=== PATIENT | male | born 1990 ===

== ENCOUNTER 2022-10-27 15:08 | Emergency (ER) | payer MEDICAID, SELFPAY ==
--- NOTE | ~2022-10-27 | CT_ITS ---
EXAMINATION: CT RIGHT KNEE WITHOUT CONTRAST CLINICAL INFORMATION: Tibial plateau fracture COMPARISON: None. TECHNIQUE: Multidetector CT examination of the right knee is performed without contrast. This CT examination was performed using dose optimization techniques as appropriate, variously including the following: *Automated exposure control *Adjustment of mA and/or kV according to patient size (this includes techniques or standardized protocols for targeted exams where dose is matched to indication/reason for exam; i.e. extremities or head) *Use of iterative reconstruction technique Reformatting in the coronal and parasagittal planes. DLP: 280 mGy-cm FINDINGS: There is an intra-articular mildly distracted minimally displaced posterior medial tibial plateau fracture extending to the medial tibial spine which measures approximately 3.2 x 1.3 x 3.0 cm. The tibial plateau fracture fragment measures 3.2 x 1.3 cm in the coronal plane and involves the posterior half of the medial tibial plateau and measures 3.0 cm from anterior to posterior. The articular surface is relatively smooth. There is approximately 3 mm of distraction. There may be minimal cortical disruptions of the lateral tibial plateau and the anterior aspect of the medial tibial plateau with some impaction/sclerosis. Difficult to assess the integrity of the cruciates. There is soft tissue stranding and there is a lipohemarthrosis. The fibula, patella and visualized femur appear intact CT/CT lower leg RT wo IV con IMPRESSION: 1. There is a somewhat displaced medial tibial plateau fracture extending to the medial tibial spine 2. The tibial plateau fracture fragment measures 3.2 x 1.3 cm in the coronal plane and involves the posterior half of the medial tibial plateau and measures 3.0 cm from anterior to posterior. The articular surface is relatively smooth. There is approximately 3 mm of distraction. Difficult to assess the integrity of the cruciates. There is soft tissue stranding and there is a lipohemarthrosis. The fibula, patella and visualized femur appear intact 3. Soft tissue injury suspected
--- NOTE | ~2022-10-27 | XR_ITS ---
EXAMINATION: XR KNEE, RIGHT CLINICAL INFORMATION: Fall COMPARISON: None available. TECHNIQUE: Four views of the right knee. FINDINGS: There is a minimally displaced medial tibial plateau fracture. No other fracture is seen. Joint spaces are normal. There is a small joint effusion with fat fluid level. XR/XR knee RT 3V IMPRESSION: Minimally displaced medial tibial plateau fracture.
--- NOTE | 2022-10-27 15:12 | ED.FALL ---
HPI - Fall General Chief Complaint: Extremity Problem Stated Complaint: fall Time Seen by Provider: 10/27/22 15:26 Source: patient Mode of arrival: ambulatory Limitations: no limitations History of Present Illness HPI Narrative: Patient is a 32-year-old male with history of recent meniscus injury found on MRI last week presenting to the emergency department with complaint of right knee pain after falling down concrete stairs last night. Patient reports that when he put weight on his right leg his knee gave out and he fell forward on to outstretched arms. He denies hitting his head. Denies any loss of consciousness. Denies any neck or back pain. He reports abrasions to bilateral palms as well as right anterior knee. He states that he fell directly onto his knee. Denies any numbness or tingling to his lower leg. Reports pain with any movement of right knee. complaint: fall Onset (ago): hour(s) Fall from: standing and down stairs (#) (1-2) Fall witnessed: yes, by family Place fall occurred: home Loss of consciousness: none Prolonged down time: no Symptoms prior to fall: other (knee instability) Location of injury - extremities: right: knee Severity: severe Quality: sharp Associated symptoms (after fall): denies Related Data Previous Rx's Medication Instructions Recorded oxycodone 5 mg tablet 5 mg PO Q8H PRN pain #8 tabs 10/27/22 Allergies Allergy/AdvReac Type Severity Reaction Status Date / Time No Known Allergies Allergy Verified 10/27/22 15:15 Review of Systems Review of Systems: As per HPI. Yes all other systems are reviewed and are negative Constitutional: Constitutional: Reports as per HPI [facility] Social History Social History Advance Directives: No Advance Directives Information Provided: No Physical Exam Vital Signs: Vital Signs: Last Vital Signs Temp 98.2 F 10/27/22 15:13 Pulse 108 H 10/27/22 15:13 Resp 18 10/27/22 15:13 BP 165/95 H 10/27/22 15:13 Pulse Ox 97 10/27/22 15:13 O2 Del Method Room Air 10/27/22 15:13 BMI result Body Mass Index 28.3 Vital signs have been reviewed and appear to be correct. Blood pressure elevated. Heart rate slightly tachycardic. Respiratory rate normal. Temperature normal. Oxygen saturation normal. Const: General: cooperative, healthy appearing and no acute distress Orientation/consciousness: oriented to person, oriented to place, oriented to time and patient oriented x3 Limitations: no limitations HEENT: Head: Yes normocephalic and Yes atraumatic Ears: external ears normal General nose exam: Normal external nose present Face and sinus: Yes face symmetric Mouth: oropharynx normal and moist mucous membranes Throat: Yes uvula midline Eyes: Pupils: Equal, round and reactive pupils present Neck: Neck: Yes normal visual inspection and Yes supple Resp: Effort & Inspection: normal respiratory effort and able to speak in complete sentences Auscultation: clear to auscultation bilaterally Cardio: Rate: regular rate Rhythm: regular rhythm Heart sounds: S1 normal heart sound present and S2 normal heart sound present GI: Palpation (GI): Soft to palpation and nontender Auscultation: normoactive bowel sounds : General: Yes no CVA tenderness Back/Spine/Pelvis: Back: no CVA tenderness Skin: General skin exam: elasticity normal and turgor normal Trauma: abrasion (bilateral palms of hands, right anterior knee) Neuro: General: oriented to person, oriented to place, oriented to time, patient oriented x3, moves all extremities, no focal motor deficits and CN's II-XI intact bilaterally Cranial nerves: Yes Equal, round and reactive pupils present Cognition (Neuro): normal cognition Extrem: General: Yes full ROM, Yes no pedal edema and Yes no calf tenderness Right upper extremity: Extremity exam: right hand Details: normal capillary refill, neuromotor exam normal, neurosensory exam normal and abrasion Location: of the palm Location: at the thenar eminence and at the hypothenar eminence Left upper extremity: hand Details: normal capillary refill, neuromotor exam normal, neurosensory exam normal and abrasion Location: of the palm Location: at the thenar eminence and at the hypothenar eminence Right lower extremity: knee Details: tenderness Location: of the tibial tuberosity, of the infrapatellar area and of the proximal tibia, abnormal ROM Details: held in an abnormal fashion Details: in flexion and pain with active ROM during Details: in extension and in flexion and abrasion knee anterior Details: multiple and foot Details: vascular exam Details: dorsalis pedis pulse present and posterior tibial pulse present Psych: Mental Status: mental status grossly normal Affect: normal affect Thought process: Normal thought process present Course Course Course Narrative: This is a rapid medical exam. Deferred additional HPI, ROS, PE to primary provider. 32 yo male here with complaints of right knee pain/fall early this morning. Went to put weight on right knee but knee gave out on him causing him to fall down four stairs. Denies hitting head or LOC. Had MRI of the right knee one week ago which shows meniscus injury, instability of knee is not a new thing. Has multiple abrasions. Tetanus status unknown. VSS Will check x-rays. Medications Administered Discontinued Medications Generic Name Dose Route Start Last Admin Trade Name Freq PRN Reason Stop Dose Admin Diphtheria/Tetanus/Acell Pertussis 0.5 ml 10/27/22 15:15 10/27/22 15:40 Diphth,Pertus(Acell),Tet Adult 0.5 Ml Syringe IM 10/27/22 15:16 0.5 ml .ONCE ONE Administration Oxycodone HCl 5 mg 10/27/22 16:29 10/27/22 16:36 Oxycodone Hcl Immed Release 5 Mg Tablet PO 10/27/22 16:30 5 mg ONCE ONE Administration Medical Decision Making Medical Decision Making MDM Narrative: Patient is a 32-year-old male with history of recent meniscus injury found on MRI last week presenting to the emergency department with complaint of right knee pain after falling down concrete stairs last night. On exam patient is awake, A+Ox3, VS WNL, afebrile, normal neurological exam without focal deficits, abrasions and mild tenderness to bilateral palms, abrasions to right anterior knee with tenderness and swelling to proximal tibia, ROM limited due to pain, 2+ PT and DP pulses. Given reported symptoms and physical exam findings, initial differential includes fracture, ligamentous injury, contusion, abrasion. Tdap ordered by provider in triage. X-ray notable for fracture to tibial plateau. My interpretation is in agreement with the radiologist's interpretation. Case discussed with danay Agee who recommends CT for better evaluation of displacement but states that patient can be placed in knee immobilizer and follow-up outpatient regardless. Crutches and crutch teaching ordered. Will prescribe short course of oxycodone and advised patient to alternate Tylenol and ibuprofen for pain, apply ice several times daily, keep leg elevated while at rest, no weight-bearing. Will refer patient to orthopedics for further management. Return precautions discussed at bedside. Patient and verbalized understanding of and agreement with plan. Differential Diagnosis Differential Diagnoses: The differential diagnosis associated with the presentation includes As per MDM Consult Healthcare Provider Management of the patient was discussed with: Aircraft Structural Repair Mechanic (danay Agee) Independent Interpretation I performed an independent interpretation of an: Plain X-Ray and CT Scan Interpretation: tibial plateau fracture Radiology Impression Discussion of test interpretation with radiology: I have reviewed the radiologist's reading. Radiologist Impression: XR/XR knee RT 3V IMPRESSION: Minimally displaced medial tibial plateau fracture. Independent Historian Clinical information obtained from an independent historian. History obtained from or confirmed by: Spouse External Record Review External record reviewed: Inpatient record, Office record and Outpatient record Prescription Management I considered prescription management with: Pain Medication Discharge Plan Discharge Clinical Impression: Closed fracture of tibial plateau Qualifiers: Encounter type: initial encounter Laterality: left Qualified Code(s): S82.142A - Displaced bicondylar fracture of left tibia, initial encounter for closed fracture Patient Disposition: Home, Self-Care Instructions: Leg Fracture (ED), Crutch Instructions (ED), R.I.C.E. Treatment (ED) Additional Instructions: You have been evaluated in the emergency department today for knee pain. Your x-ray showed evidence of a tibia fracture. You should not bear any weight on your right leg and you are being provided with crutches to use while your knee heals. Please rest, ice, and elevate your knee. You are being prescribed a short course of oxycodone for severe pain. We recommend you take 600mg ibuprofen every 6 hours or 650mg Tylenol every 6 hours as needed for pain. If needed you can alternate these medications as they take 1 medication every 3 hours. For instance at noon take ibuprofen, then at 3:00 p.m. take Tylenol, then at 6:00 p.m. take ibuprofen. YOU ARE BEING REFERRED TO ORTHOPEDICS, PLEASE CALL THEM Friday TO SCHEDULE AN APPOINTMENT. Please schedule an appointment for follow-up with your primary care provider this week as well. Return to the emergency department if you experience worsening pain, numbness, tingling, change of color in your leg, or any other concerning symptoms. Prescriptions: New oxycodone 5 mg tablet 5 mg PO Q8H PRN (Reason: pain) Qty: 8 0RF Rx Instructions: Partial Fill upon patient request. Referrals: [facility] [place] Orthopedic Surgeons [Provider Group] Stand Alone Forms: Work/School Release
[2022-10-27 15:13] VITALS: BP 165/95; PULSE 108; RESP 18; TEMP 36.8; O2SAT 97; BMI 28.3
[2022-10-27] MEDS: Diphth,Pertus(ACell),Tet Adult 0.5 ML SYRINGE IM (15:40)
[2022-10-27] MEDS: oxyCODONE HCl Immed Release 5 MG TABLET PO (16:36)
== END 2022-10-27 19:34 | disposition home or self-care (01) ==
PROVIDERS: Emergency Provider Emergency Medicine; PCP Internal Medicine
DX: S82.142A Displaced bicondylar fracture of left tibia, initial encounter for closed fracture (principal); S89.91XA Unspecified injury of right lower leg, initial encounter; S60.512A Abrasion of left hand, initial encounter; S60.511A Abrasion of right hand, initial encounter; W01.0XXA Fall on same level from slipping, tripping and stumbling without subsequent striking against object, initial encounter; Y93.9 Activity, unspecified; Y92.9 Unspecified place or not applicable; Y99.9 Unspecified external cause status; Z23 Encounter for immunization
CPT/HCPCS: 73562; 73700; 90471; 90715; 99283; 99284

== ENCOUNTER 2022-11-01 10:58 | Outpatient (AMB) | payer MEDICAID, SELFPAY ==
--- NOTE | 2022-11-01 10:59 | MHC.OFFVIS ---
Intake Vital Signs 11/01/22 11:14 Height 5 ft 10 in Weight 197 lb BMI 28.3 Intake Visit Reasons: FC- tibial plateau fracture DOI 10/27/22 Intake Note: Farhan a 32 year old male who presents today for an ER follow up of right knee, DOI 10/26/22. Patient reports falling down concrete stairs, when he put weight on his right leg his knee gave out and he fell forward onto outstretched arms. He was seen at [facility] the next day where xrays were taken and was placed in a knee immobilizier. States work injury about 2 years ago that causes his knee to give out frequently. He had an MRI done last week at [place] and states lower right lateral meniscus tear. Currently his pain varies in intensity and at night pain is worse. Finds some relief with ibuprofen 600 mg. Allergies No Known Allergies Allergy (Verified 11/01/22 11:14) HPI FC- tibial plateau fracture DOI 10/27/22 HPI Details 32-year-old male presents to the office today for an injury he sustained to his right knee on 10/27/22. He states he initially injured his right knee at work, which resulted in a meniscus tear. He states the knee has been giving out and buckling. On 10/27/22, he was walking down the stairs when he stepped and the knee gave out and he fell. He was unable to get up and ambulate. He was seen in the ED, xrays and CT scan demonstrated tibial plateau fracture. he was placed in a knee immobilizer and referred to our office for ortho eval. [facility] Social History (Updated 11/01/22 @ 11:09 by Marii Marc Sadaf) Patient Tobacco Use Status: Former Tobacco user Current occupational status: unemployed Review of Systems Const All systems reviewed & are unremarkable except as noted in HPI and below Physical Exam Vital Signs: BMI result Body Mass Index 28.3 Extrem Other: Right knee: Skin intact. He does have an abrasion over the anterior portion of knee with some edema. No erythema. Slight tenderness over the tibia. Calf supple, nontender. NVI. Assessment & Plan Assessment & Plan (1) Tibial plateau fracture, right: Code(s): S82.141A - Displaced bicondylar fracture of right tibia, initial encounter for closed fracture Qualifiers: Encounter type: initial encounter Fracture type: closed Qualified Code(s): S82.141A - Displaced bicondylar fracture of right tibia, initial encounter for closed fracture Plan: I discussed the case with Dr Penny and explained the extent of the injury to the patient and options available which include surgical intervention. I explained the procedure in detail along with the length of recovery and rehab course. I explained the risk, benefits and alternatives. Risk including, but not limited to infection, blood clots, bleeding, non union or malunion and nerve/tissue damage to surrounding areas. I answered all their questions and with their understanding they have consented to move forward with Operative Fixation of the right tibial plateau . Patient Instructions: Scribed for Anuel Starks PA-C, by Niranjan Fox medical technologist hematology, on 11/01/2022 at 11:30 AM DOC. Curry, Anuel Starks PA-C, have personally reviewed and agree with the information entered by the scribe. Coding Level of Care Code New Pt Level 4 (03375) Diagnoses Closed fracture of right tibial plateau, initial encounter S82.141A Encounter type: initial encounter Fracture type: closed
[2022-11-01 11:14] VITALS: BMI 28.3
== END 2022-11-01 12:21 | disposition home or self-care (01) ==
PROVIDERS: PCP Internal Medicine; Visit Provider Physician Assistant
DX: S82.141A Displaced bicondylar fracture of right tibia, initial encounter for closed fracture (principal)
CPT/HCPCS: 99204

== ENCOUNTER → 2022-11-01 10:58 | Outpatient (BNVA) | payer MEDICAID, SELFPAY | PROVIDERS: PCP Internal Medicine; Visit Provider Physician Assistant | DX: S82.141A Displaced bicondylar fracture of right tibia, initial encounter for closed fracture (principal) | CPT/HCPCS: 99212 ==

== ENCOUNTER 2022-11-06 10:55 | Day surgery (SDC) | payer MEDICAID, SELFPAY ==
--- NOTE | 2022-11-05 08:52 | HO.ANESPROP2 ---
Documented by User: So Rizo NP 11/05/22 08:52 HPI - Anesthesia Eval Consult details Narrative: 32yo M for Right Tibia Plateau ORIF PMFSH Active Problems Active Problems: All Active Problems (Updated 11/01/22 @ 12:17 by Anuel Starks PA-C) Tibial plateau fracture, right (Acute) Social History Social History Patient Tobacco Use Status: Former Tobacco user Use of substances other than those prescribed or required for medical reasons: Yes Substance Use Type Other:: 2 hits 0630 Are you DNR?: No Advance Directives: No Advance Directives Information Provided: Yes Current occupational status: unemployed Meds Allergies Allergy/AdvReac Type Severity Reaction Status Date / Time No Known Allergies Allergy Verified 11/01/22 11:14 Exam Exam Date and Time: November 05, 2022851 Assessment and Plan Assessment Anesthesia Assessment: Chart Reviewed Documented by User: Sandhya Brewer MD 11/06/22 12:32 PMFSH Surgical History History of Problems with Anesthesia: No Social History Social History Patient Tobacco Use Status: Former Tobacco user Use of substances other than those prescribed or required for medical reasons: Yes Substance Use Type Other:: 2 hits 06 Are you DNR?: No Advance Directives: No Advance Directives Information Provided: Yes Current occupational status: unemployed Meds Allergies Allergy/AdvReac Type Severity Reaction Status Date / Time No Known Allergies Allergy Verified 11/01/22 11:14 Exam Airway Mallampati Class: II TM Dist: >3cm Neck ROM: Full Loose/Missing/Broken Teeth: No Heart: RRR Lungs: CTA Assessment and Plan Assessment Anesthesia Assessment: Anesthesia Plan Discussed Final Anesthetic Review History of Problems with Anesthesia: No NPO: Yes ASA Class: II Final Preanesthetic Review: Meds/Allgs Chart Reviewed, Consent Obtained/Reviewed and Anes Risks/Benef Reviewed Patient Risk: Low Procedure Risk: Low Anesthetic Plan Anesthetic Plan: GA Disposition: Standard PACU
--- NOTE | ~2022-11-06 | FL_ITS ---
EXAMINATION: XR FLUOROSCOPY WITH IMAGES CLINICAL INFORMATION: Fracture right tibial plateau. COMPARISON: None available. TECHNIQUE: Fluoroscopy Supervised By: Dr. Bharat Penny. Fluoroscopy Time: 0.1 minutes. Cumulative Dose: 0.826 mGy. DAP: 0.0143 MGYM2. Images: 2. FINDINGS: Two images demonstrate a single screw passing through the proximal right tibial metaphysis. The patient's fracture is not appreciated on the current exam as fragments are extremely well opposed. FL/FL guidance in OR IMPRESSION: Fluoroscopy and spot films provided during open reduction and internal fixation of tibial plateau fracture.
[2022-11-06 11:08] VITALS: BMI 28.3
[2022-11-06 11:12] VITALS: PULSE 106; RESP 18; TEMP 36.8; O2SAT 97
[2022-11-06] MEDS: Lactated Ringers 1,000 ML 100 ML IVCONT (11:35)
[2022-11-06 13:15] VITALS: BP 150/90; PULSE 90; RESP 20; TEMP 37.5; O2SAT 100
[2022-11-06 13:20] VITALS: BP 155/88; PULSE 86; RESP 20; O2SAT 100
[2022-11-06 13:25] VITALS: BP 143/92; PULSE 88; RESP 20; O2SAT 100
[2022-11-06 13:30] VITALS: BP 145/82; PULSE 77; RESP 20; O2SAT 100
[2022-11-06 13:45] VITALS: BP 156/90; PULSE 84; RESP 20; TEMP 36.9; O2SAT 100
--- NOTE | 2022-11-06 15:15 | P.BOP_ITS ---
Brief Operative Note Date of Service: 11/06/22 Pre-op diagnosis: Right tibial plateau fracture Post-op diagnosis: same Procedure: ORIF right tibial plateau fracture Implants: 85 mm 3.5 cortical screw x 1 Surgeon: Bharat Penny MD Anesthesia: GETA and regional Was an Flame Annealing Machine Setter used for this Procedure?: Yes Flame Annealing Machine Setter: Jessica Rich Estimated blood loss (mL): 20 Tourniquet time (min): 25 IV fluids (mL): 70 Pathology: none sent Condition: stable Disposition: PACU
--- NOTE | 2022-11-15 14:48 | W.PM.OPN ---
Operative Note Operative Note Date of Service: 11/06/22 Narrative: Date of Service: 11/06/22 Pre-op diagnosis: Right tibial plateau fracture Post-op diagnosis: same Procedure: ORIF right tibial plateau fracture Implants: 85 mm 3.5 cortical screw x 1 Surgeon: Bharat Penny MD Anesthesia: GETA and regional Was an Professor Of Communication used for this Procedure?: Yes Professor Of Communication: Jessica Rich Estimated blood loss (mL): 20 Tourniquet time (min): 25 IV fluids (mL): 70 Pathology: none sent Condition: stable Disposition: PACU Procedure in detail Patient was brought to the operating room and placed supine on the surgical table. He was prepped and draped in standard sterile fashion and a time out was called to identify proper site, proper procedure and IV antibiotics per weight were administered. I began by exsanguinating the limb. I then made a curvilinear incision over the postermomedial tibial plateau. Dissection was taken down to the pm capsule just anterior to the pes anserine tendons. Under direct visualization i identified the fracture with a freer and openind it up. I irrigated and used a small currette to clean up the fracture fragements. I then drilled a 2,7 drill bicortically and then overdrilled the proximal fragment. I then measured and [id number] an 85 mm bicortical 3.5 screw. I had excellent compression. There was no space for an additional screw and no additional fixation was placed. The fracture was anatomically reduced. Biplanar fluro was used to confirm fracture reduction and hardware alignment. I was satisfied with both final fluoroscopic images were taken. The tourniquet was then let down and there was no brisk bleeding. A layered closure was performed absorbable subq and the titi. Sterile dressings were applied and a hinged knee brace as well. Patient was extubated and brought to the recovery room in stable condition. There were no known complications.
== END 2022-11-06 14:23 | disposition home or self-care (01) ==
PROVIDERS: PCP Internal Medicine; Visit Provider Orthopaedic Surgery
PROC: (CPT 27536; principal; 2022-11-06 13:00)
DX: S82.141A Displaced bicondylar fracture of right tibia, initial encounter for closed fracture (principal); W10.8XXA Fall (on) (from) other stairs and steps, initial encounter; Y93.9 Activity, unspecified; Y92.9 Unspecified place or not applicable; Y99.9 Unspecified external cause status
CPT/HCPCS: 27536; C1713; J0131; J0690; J1100; J1885; J2250; J2405; J2795; J3010

== ENCOUNTER → 2022-11-06 10:55 | Outpatient (BNV) | payer MEDICAID, SELFPAY | PROVIDERS: PCP Internal Medicine; Visit Provider Orthopaedic Surgery | DX: S82.141A Displaced bicondylar fracture of right tibia, initial encounter for closed fracture (principal) | CPT/HCPCS: 27235 ==

== ENCOUNTER 2022-11-14 14:14 | Outpatient (AMB) | payer MEDICAID, SELFPAY ==
--- NOTE | 2022-11-14 14:22 | MHC.OFFVIS ---
Intake Intake Visit Reasons: PO RT ORIF Tib.Paige. 11/06/22NE Intake Note: Farhan Og male presents today for his P/o visit for his P/O RT ORIF TIB Plateau from 11/06/22. States he is having soreness and discomfort in calf. Cont's to use brace. Allergies No Known Allergies Allergy (Verified 11/14/22 14:24) HPI PO RT ORIF Tib.Paige. 11/06/22NE HPI Details 32-year-old male who presents in the office today 1 weeks status post right tibial plateau open reduction and internal fixation, which was performed on 11/06/[address] Penny. The patient claims he is still having some soreness and discomfort in the right calf. He reports he is still using the brace. [facility] Social History Patient Tobacco Use Status: Former Tobacco user Current occupational status: unemployed Review of Systems Const All systems reviewed & are unremarkable except as noted in HPI and below Physical Exam Const General: cooperative, healthy appearing and no acute distress Resp Effort & Inspection: normal respiratory effort and able to speak in complete sentences Cardio Rate: regular rate Peripheral pulses: Peripheral pulses 2+ throughout GI Palpation (GI): Soft to palpation Skin Lesions: no lesions Rashes: no rashes Extrem Other: Right knee: Incision site is clean, dry, and intact. Steri-stripes intact. No signs of infection. Calf is supple, however is tender with calf squeeze. Positive Hernandez?s. Sensation intact. Pedal pulse intact. Assessment & Plan Assessment & Plan (1) Tibial plateau fracture, right: Code(s): S82.141A - Displaced bicondylar fracture of right tibia, initial encounter for closed fracture Qualifiers: Encounter type: initial encounter Fracture type: closed Qualified Code(s): S82.141A - Displaced bicondylar fracture of right tibia, initial encounter for closed fracture Plan Mr. Lui is a 32-year-old male who presents in the office today 1 weeks status post right tibial plateau open reduction and internal fixation, which was performed on 11/06/[address] Penny. The patient claims he is still having some soreness and discomfort in the right calf. He reports he is still using the brace. Steri-stripes will remain intact until they fall off on their own. He is to remain non-weight bearing for 3 onths. He will be referred to physical therapy. He will remain in the brace at this time. Out of abundance of caution due to his calf pain, reported diana horse sensations and recent surgery with sedentary state He will be referred for a stat ultrasound to rule out a DVT in the right lower extremity. Follow up will be in 4 weeks with repeat x-rays, or sooner if needed. Orders: Orders US venous duplex LE RT Today S82.141A - Displaced bicondylar fracture of right tibia, initial encounter for closed fracture Patient Instructions: Scribed for Jessica Rich PA-C by Yandy Prieto ophthalmic medical technologist, on 11/14/2022 at 2:16 pm, EST. Coding Level of Care Code Global (08541) Diagnoses Closed fracture of right tibial plateau, initial encounter S82.141A Encounter type: initial encounter Fracture type: closed
== END 2022-11-14 15:30 | disposition home or self-care (01) ==
PROVIDERS: PCP Internal Medicine; Visit Provider Physician Assistant
DX: S82.141A Displaced bicondylar fracture of right tibia, initial encounter for closed fracture (principal)
CPT/HCPCS: 99024

== ENCOUNTER → 2022-11-14 14:14 | Outpatient (BNVA) | payer MEDICAID, SELFPAY | PROVIDERS: PCP Internal Medicine; Visit Provider Physician Assistant ==

== ENCOUNTER 2022-11-14 15:57 | Outpatient (REF) | payer MEDICAID, SELFPAY ==
--- NOTE | ~2022-11-14 | US_ITS ---
EXAMINATION: US VENOUS ULTRASOUND WITH DOPPLER LOWER EXTREMITY, RIGHT CLINICAL INFORMATION: Displaced bicondylar fracture of tibia COMPARISON: None available. TECHNIQUE: Ultrasound of the deep veins is performed from the hip to the calf with compression sonography and color and pulse Doppler assessment. Spectral analysis with color-flow imaging is performed. FINDINGS: There is normal venous compression and respiratory variation and augmented flow. The visualized common femoral vein, superficial femoral vein, profunda femoral vein, popliteal vein, and the trifurcation region shows no evidence of deep venous thrombosis. There is no significant popliteal fossa cyst. If the patient's symptoms persist, followup ultrasound in 5 days 7 days might be of value to exclude proximal propagation from a non-visualized calf vein. US/US venous duplex LE RT IMPRESSION: No DVT demonstrated in the right lower extremity.
== END 2022-11-14 15:58 | disposition home or self-care (01) ==
LOC: HO.US 15:57
PROVIDERS: Visit Provider Physician Assistant
DX: S82.141A Displaced bicondylar fracture of right tibia, initial encounter for closed fracture (principal); X58.XXXA Exposure to other specified factors, initial encounter; Y93.9 Activity, unspecified; Y92.9 Unspecified place or not applicable; Y99.9 Unspecified external cause status
CPT/HCPCS: 93971

== ENCOUNTER 2022-12-12 11:56 | Outpatient (AMB) | payer MEDICAID, SELFPAY ==
--- NOTE | 2022-12-12 12:23 | A.OFFVIS_ITS ---
Intake Intake Visit Reasons: PO RT ORIF Tib.Paige. 11/06/22NE Intake Note: Farhan Og male presents today for his P/o visit for his P/O RT ORIF TIB Plateau from 11/06/22. Patient reports having some discomfort. He states that he is doing well for the most part. Allergies No Known Allergies Allergy (Verified 12/12/22 12:27) HPI PO RT ORIF Tib.Paige. 11/06/22NE HPI Details 32-year-old male who presents in the off ice today 1 month status post right tibial plateau open reduction and internal fixation, which was performed on 11/06/[address] Penny. The patient reports he is having some discomfort, but overall he is doing well. [facility] Social History Patient Tobacco Use Status: Former Tobacco user Current occupational status: unemployed Review of Systems Const All systems reviewed & are unremarkable except as noted in HPI and below Physical Exam Const General: cooperative, healthy appearing and no acute distress Resp Effort & Inspection: normal respiratory effort and able to speak in complete sentences Cardio Rate: regular rate Peripheral pulses: Peripheral pulses 2+ throughout GI Palpation (GI): Soft to palpation Skin Lesions: no lesions Rashes: no rashes Extrem Other: Right knee: Incision site is clean, dry, and intact. No surrounding erythema or drainage. No signs of infection. ROM is 0-80 degrees. NVI. Assessment & Plan Assessment & Plan (1) Tibial plateau fracture, right: Comment: Right tibial plateau ORIF 11/05/22 NE Code(s): S82.141A - Displaced bicondylar fracture of right tibia, initial encounter for closed fracture Qualifiers: Encounter type: initial encounter Fracture type: closed Qualified Code(s): S82.141A - Displaced bicondylar fracture of right tibia, initial encounter for closed fracture Plan Mr. Lui is a 32-year-old male who presents in the office today 1 month status post right tibial plateau open reduction and internal fixation, which was performed on 11/06/[address] Penny. The patient reports he is having some discomfort, but overall he is doing well. The patient will be referred to physical therapy to begin to work on gentle ROM of the right knee. He has no ROM restrictions. He will continue to remain non- weight bearing until 3 months post-op. Follow up will be in 6 weeks, or sooner if needed. X-rays of the right knee obtained while in the office today and reviewed by me, Jessica Rich PA-C, revealed intact orthopedic hardware with routine healing. Orders: Orders XR knee RT 2V Today M25.569 - Pain in unspecified knee PT Evaluation and Treatment 12/11/22 S82.141A - Displaced bicondylar fracture of right tibia, initial encounter for closed fracture Patient Instructions: Scribed for Jessica Rich PA-C by Yandy Prieto medical staffing coordinator, on 12/12/2022 at 12:04 pm, EST. Coding Level of Care Code Global (29882) Diagnoses Closed fracture of right tibial plateau, initial encounter S82.141A Encounter type: initial encounter Fracture type: closed
== END 2022-12-12 13:07 | disposition home or self-care (01) ==
PROVIDERS: PCP Internal Medicine; Visit Provider Physician Assistant
DX: S82.141A Displaced bicondylar fracture of right tibia, initial encounter for closed fracture (principal)
CPT/HCPCS: 99024

== ENCOUNTER 2022-12-12 15:47 | Outpatient (REF) | payer MEDICAID, SELFPAY ==
--- NOTE | ~2022-12-12 | XR_ITS ---
EXAMINATION: XR KNEE, RIGHT CLINICAL INFORMATION: Right knee pain COMPARISON: 10/27/2022 TECHNIQUE: AP and lateral views of the right knee. FINDINGS: Moderate joint effusion present. Status post interval placement of a surgical screw traversing the previously identified minimally displaced medial tibial plateau fracture with improved alignment. Fracture lines less visible and there is now sclerosis along the fracture line. XR/XR knee RT 2V IMPRESSION: Status post screw fixation of previously identified medial tibial plateau fracture.
== END 2022-12-12 15:48 | disposition home or self-care (01) ==
LOC: HO.HOSX 15:47
PROVIDERS: Visit Provider Physician Assistant
DX: S82.141D Displaced bicondylar fracture of right tibia, subsequent encounter for closed fracture with routine healing (principal); M25.561 Pain in right knee
CPT/HCPCS: 73560

== ENCOUNTER 2023-01-23 12:07 | Outpatient (REF) | payer MEDICAID, SELFPAY | END 2023-01-23 12:08 | disposition home or self-care (01) | LOC: HO.HOSX 12:07 | PROVIDERS: Visit Provider Physician Assistant | DX: Z13.89 Encounter for screening for other disorder (principal) ==

== ENCOUNTER 2023-02-14 10:39 | Outpatient (AMB) | payer MEDICAID, SELFPAY ==
--- NOTE | 2023-02-14 10:48 | MHC.OFFVIS ---
Intake Intake Visit Reasons: PO RT ORIF Tib.Paige. 11/06/22NE Intake Note: Farhan is a 32 year old male who presents today for a follow up visit s/p RT ORIF TIB Plateau 11/06/22 NE. Patient reports he is doing well. PT is going great, he is noticing some improvements. ROM is slightly improving per patient. Allergies No Known Allergies Allergy (Verified 02/14/23 10:49) HPI PO RT ORIF Tib.Paige. 11/06/22NE HPI Details 32-year-old male who presents in the office today 3 month status post right tibial plateau open reduction and internal fixation, which was performed on 11/06/[address] Penny. I last saw the patient in the office on 12/12/2022 at which time he was referred to physical therapy to work on gentle ROM and instructed to remain non-weight bearing for 3 months post-op. While in the office today the patient reports he is doing well. He states physical therapy is going great and he has noticed some improvement. He claims his ROM has slightly improved as well. [facility] Social History Patient Tobacco Use Status: Former Tobacco user Current occupational status: unemployed Review of Systems Const All systems reviewed & are unremarkable except as noted in HPI and below Physical Exam Const General: cooperative, healthy appearing and no acute distress Resp Effort & Inspection: normal respiratory effort and able to speak in complete sentences Cardio Rate: regular rate Peripheral pulses: Peripheral pulses 2+ throughout GI Palpation (GI): Soft to palpation Skin Lesions: no lesions Rashes: no rashes Extrem Other: Right knee: Incision site is clean, dry, and intact. No ecchymosis, erythema, or joint effusion. No signs of infection. ROM is 0-110 degrees. NVI. Assessment & Plan Assessment & Plan (1) Tibial plateau fracture, right: Comment: Right tibial plateau ORIF 11/05/22 NE Code(s): S82.141A - Displaced bicondylar fracture of right tibia, initial encounter for closed fracture Qualifiers: Encounter type: initial encounter Fracture type: closed Qualified Code(s): S82.141A - Displaced bicondylar fracture of right tibia, initial encounter for closed fracture Plan Mr. Lui is a 32-year-old male who presents in the office today 3 month status post right tibial plateau open reduction and internal fixation, which was performed on 11/06/[address] Penny. I last saw the patient in the office on 12/12/2022 at which time he was referred to physical therapy to work on gentle ROM and instructed to remain non-weight bearing for 3 months post-op. While in the office today the patient reports he is doing well. He states physical therapy is going great and he has noticed some improvement. He claims his ROM has slightly improved as well. The patient will continue to work with physical therapy and begin to wean out of the brace. He may weight bear as tolerated with out crutches. He admits to weight bearing with crutches. Follow up will be 6 weeks, or sooner if needed. X-rays of the right knee which were obtained while in the office today and were reviewed by me, Jessica Rich PA-C, revealed orthopedic hardware intact with routine healing. Orders: Orders XR knee RT 2V Today M25.569 - Pain in unspecified knee Patient Instructions: Scribed for Jessica Rich PA-C by Yandy Prieto medical program specialist, on 02/14/2023 at 10:43 am, EST. Coding Level of Care Code Est Pt Level 3 (75274) Diagnoses Closed fracture of right tibial plateau, initial encounter S82.141A Encounter type: initial encounter Fracture type: closed
== END 2023-02-14 11:00 | disposition home or self-care (01) ==
PROVIDERS: PCP Internal Medicine; Visit Provider Physician Assistant
DX: S82.141D Displaced bicondylar fracture of right tibia, subsequent encounter for closed fracture with routine healing (principal)
CPT/HCPCS: 99213

== ENCOUNTER 2023-02-14 12:01 | Outpatient (REF) | payer MEDICAID, SELFPAY | END 2023-02-14 12:02 | disposition home or self-care (01) | LOC: HO.HOSX 12:01 | PROVIDERS: Visit Provider Physician Assistant | DX: S82.141D Displaced bicondylar fracture of right tibia, subsequent encounter for closed fracture with routine healing (principal); M25.561 Pain in right knee; X58.XXXD Exposure to other specified factors, subsequent encounter; Z98.890 Other specified postprocedural states | CPT/HCPCS: 73560; 99212 ==

== ENCOUNTER 2023-03-18 14:00 | Outpatient (RCR) | payer MEDICAID, SELFPAY ==
--- NOTE | 2023-01-03 12:43 | MHC.PT.EP ---
[facility] [place] Office [place] Office [place] Office [address] William Alex [address] [phone] F: [phone] F: [phone] F: [phone] F: [phone] Physical Therapy Plan of Care Date of Evaluation: 01/03/23 Date of Surgery: 11/06/22 Diagnosis: s/p ORIF R tibial plateau fx (11/06/22) Assessment: pt is a 32 y/o male presenting to physical therapy w/ referring diagnosis of displaced bicondylar fracture of right tibia, initial encounter for closed fracture. Impairments include pain, decreased range of motion, decreased strength, impaired functional mobility, impaired postural awareness, and altered ambulation mechanics. pt is a good candidate for skilled PT due to age, potential remediation of impairments, typical disease/condition progression and prognosis, comorbidities, and motivation. pt would benefit from skilled PT intervention to provide a tailored strengthening and stretching exercise program, functional training, gait training, postural re-training, neuromuscular re-education, modalities as needed for pain, equipment safety demonstration. Frequency and Duration: The patient will be seen 2x/wk for 10 wks Short Term Goals: pt will be I w/ HEP to promote self-management of post-operative status. pt will improve R knee extension by at least 10 degrees to promote improved tolerance for brace compliance. Shelter Goals: pt will ascend/descend 40 stairs using reciprocal pattern WBAT to access primary living spaces. pt will report a statistically significant improvement in self-reported outcome measure, LEFI, to promote return to PLOF. Treatment Plan: Modalities to reduce pain, spasms and effusion. Manual therapy to restore motion and function. Therapeutic exercise to improve strength and flexibility. Neuromuscular re-education for posture and balance. Therapeutic activities to return to functional activities of daily living. Electronically signed by: Tanika Knight PT, DPT Please sign and return to therapist. Thank you for your referral.
--- NOTE | 2023-04-10 10:43 | MHC.PT.DC ---
[facility] [place] Office [place] Office [place] Office [address] William Alex [address] [phone] F: [phone] F: [phone] F: [phone] F: [phone] Physical Therapy Discharge Report Diagnosis: s/p ORIF R tibial plateau fx (11/06/22) Date of Surgery: 11/06/22 Date of Evaluation: 01/03/23 Date of Discharge: 04/10/23 Treatments to Date: 15 Cancellations to Date: 5 No Shows to Date: 1 Discharge Status: Improved Function Independent with HEP Discharge Summary: Per last treatment note on 03/18/23: pt endorses working on his extension at home. During femoral and tibial glides he does have a bounce back of his joint. At this time, I am suspicious of meniscal injury which pt has confirmed even before the tibial fracture. He sees the orthopedic on 04/01/23. He will either be D/C'd to HEP or continue to work on extension based on their recommendations; however, I do not anticipate his range will improve anymore. He has not followed-up with our office in several weeks. He is discharged from this PT POC at this time. Electronically signed by: Tanika Knight PT, DPT Please sign and return to therapist. Thank you for your referral.
== END 2023-04-10 10:43 | disposition home or self-care (01) ==
LOC: HO.PT 14:00
PROVIDERS: PCP Internal Medicine; Visit Provider Physician Assistant
DX: S82.141A Displaced bicondylar fracture of right tibia, initial encounter for closed fracture (principal)
CPT/HCPCS: 97110; 97112; 97116; 97140; 97161

== ENCOUNTER 2023-04-01 10:10 | Outpatient (REF) | payer MEDICAID, SELFPAY ==
--- NOTE | ~2023-04-01 | XR_ITS ---
EXAMINATION: XR KNEE, RIGHT CLINICAL INFORMATION: Pain. COMPARISON: Prior radiographs, most recently 02/14/2023. TECHNIQUE: AP and lateral views of the right knee. FINDINGS: Again, there is periarticular osteopenia. There is stable alignment of a mildly displaced fracture of the medial tibial plateau, with persistent fracture line noted posteriorly on the lateral view. There is an intact orthopedic fixator screw, without hardware failure or loosening. The lateral, medial and patellofemoral joint space compartments are well-maintained. There is a small right knee joint effusion. XR/XR knee RT 2V IMPRESSION: There is stable alignment of a mildly displaced, healing fracture of the medial tibial plateau.
== END 2023-04-01 10:11 | disposition home or self-care (01) ==
LOC: HO.HOSX 10:10
PROVIDERS: Visit Provider Physician Assistant
DX: M25.561 Pain in right knee (principal); S82.141A Displaced bicondylar fracture of right tibia, initial encounter for closed fracture; X58.XXXA Exposure to other specified factors, initial encounter; Y93.9 Activity, unspecified; Y92.9 Unspecified place or not applicable; Y99.8 Other external cause status
CPT/HCPCS: 73560; 99212

== ENCOUNTER 2023-04-01 11:07 | Outpatient (AMB) | payer MEDICAID, SELFPAY ==
--- NOTE | 2023-04-01 11:20 | MHC.OFFVIS ---
Intake Vital Signs 04/01/23 11:26 Height 5 ft 10 in Weight 180 lb BMI 25.8 Intake Visit Reasons: OV - RT ORIF Tib.Paige. 11/06/22NE Intake Note: Farhan is a 32 year old male who presents today for a follow up visit s/p RT ORIF TIB Plateau 11/06/22 NE. Patient reports he is doing well. He states that PT is going well, he is showing improvements. Patient has tried weaning off of the brace and he is here today without his brace. Allergies No Known Allergies Allergy (Verified 04/01/23 11:20) HPI OV - RT ORIF Tib.Paige. 11/06/22NE HPI Details 32-year-old male who presents in the office today 4 month status post right tibial plateau open reduction and internal fixation, which was performed on 11/06/[address] Penny. I last saw the patient in the office on 02/14/2023 where he was instructed to continue to work with physical therapy, to begin to wean out of the brace, and to weight bear as tolerated with out crutches. While in the office today the patient reports he is doing well. He states physical therapy is going well with signs of improvement. He states he has weaned out of the brace and presents without in the office today. [facility] Social History Patient Tobacco Use Status: Former Tobacco user Current occupational status: unemployed Review of Systems Const All systems reviewed & are unremarkable except as noted in HPI and below Physical Exam Vital Signs: BMI result Body Mass Index 25.8 Const General: cooperative, healthy appearing and no acute distress Resp Effort & Inspection: normal respiratory effort and able to speak in complete sentences Cardio Rate: regular rate Peripheral pulses: Peripheral pulses 2+ throughout GI Palpation (GI): Soft to palpation Skin Lesions: no lesions Rashes: no rashes Extrem Other: Right kneenormal to inspection. No ecchymosis, erythema, or joint effusion. No signs of infection. ROM is 0-110 degrees. NVI. Assessment & Plan Assessment & Plan (1) Tibial plateau fracture, right: Comment: Right tibial plateau ORIF 11/05/22 NE Code(s): S82.141A - Displaced bicondylar fracture of right tibia, initial encounter for closed fracture Qualifiers: Encounter type: initial encounter Fracture type: closed Qualified Code(s): S82.141A - Displaced bicondylar fracture of right tibia, initial encounter for closed fracture Plan Mr. Lui is a 32-year-old male who presents in the office today 4 month status post right tibial plateau open reduction and internal fixation, which was performed on 11/06/[address] Penny. I last saw the patient in the office on 02/14/2023 where he was instructed to continue to work with physical therapy, to begin to wean out of the brace, and to weight bear as tolerated with out crutches. While in the office today the patient reports he is doing well. He states physical therapy is going well with signs of improvement. He states he has weaned out of the brace and presents without in the office today. The patient may return to normal activities as tolerated. He has successfully weaned out of the brace and completed all physical therapy sessions. No more orthopedic intervention for the right tibial plateau ORIF is needed at this time. However, the patient reports roughly 2 days prior to his tibial plateau injury he had an MRI of the right knee due to a work related injury. He reports the MRI was obtained at [facility] and was significant for a lateral meniscus tear. Unfortunately due to the tibial plateau fracture his treatment for the meniscus tear was placed on hold. I instructed him that he should reach out to [place] to obtained the MRI disk. This will allow me to review this with Dr. Penny and discuss possible treatment options. He states this has been a long process to get treatment due to this being a worker?s comp injury. 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 Therefore, he will contact his data management to try to obtain his home health care case manager?s information. As far as insurance we will pursue treatment of the right knee meniscus tear once all the information and MRI have been presented to the office. Follow up will be once he has obtained the worker?s comp information and MRI disk of the right knee, or sooner if needed. X-rays of the right knee which were obtained while in the office today and were reviewed by me, Jessica Rich PA-C, revealed orthopedic hardware intact with routine healing. Orders: Orders XR knee RT 2V Today M25.569 - Pain in unspecified knee Patient Instructions: Scribed by Yandy Prieto medical transcription editor, for Jessica Rich PA-C on 04/01/2023 at 11:08 am, EST. Coding Level of Care Code Est Pt Level 3 (23302) Diagnoses Closed fracture of right tibial plateau, initial encounter S82.141A Encounter type: initial encounter Fracture type: closed
[2023-04-01 11:26] VITALS: BMI 25.8
== END 2023-04-01 11:34 | disposition home or self-care (01) ==
PROVIDERS: PCP Internal Medicine; Visit Provider Physician Assistant
DX: S82.141D Displaced bicondylar fracture of right tibia, subsequent encounter for closed fracture with routine healing (principal)
CPT/HCPCS: 99213

== ENCOUNTER 2023-12-23 09:36 | Outpatient (AMB) | payer OTHER, SELFPAY ==
--- NOTE | 2023-12-23 09:38 | MHC.OFFVIS ---
Intake Visit Reasons: OV- RT ORIF TIB Plateau 11/06/22 NE Intake Note: Farhan is a 32 year old male who presents today for a follow up visit s/p RT ORIF TIB Plateau 11/06/22 NE. Patient reports he is doing well, however he has been waking up to his right knee swollen on the lateral aspect of the knee. He mentions that his pain prevents him from working which leads him to miss a couple days from work. He does find relief when he is resting and icing. Allergies No Known Allergies Allergy (Verified 04/01/23 11:20) HPI HPI OV- RT ORIF TIB Plateau 11/06/22 NE: Details: 33-year-old male who presents in the office today status post 1.1 years status post right tibial plateau open reduction and internal fixation, which was performed on 11/06/[address] Penny. I last saw the patient in the office on 04/01/23 when the patient completed all the physical therapy and was recommended to return to normal activities as tolerated. He was successfully weaned out of the brace. For the right meniscus tear, we discussed the patient reaching out to [place] to obtain the MRI disk. While in the office today, the patient reports he has been waking up at night due to edema on the medial aspect of the right knee. He also reports having right knee pain, which has caused him to miss a few days from work. He has tried rest and icing with benefit. [facility] Social History Patient Tobacco Use Status: Former Tobacco user Current occupational status: unemployed Review of Systems Const All systems reviewed & are unremarkable except as noted in HPI and below Physical Exam Const General: cooperative, healthy appearing and no acute distress Resp Effort & Inspection: normal respiratory effort and able to speak in complete sentences Cardio Rate: regular rate Peripheral pulses: Peripheral pulses 2+ throughout GI Palpation (GI): Soft to palpation Skin Lesions: no lesions Rashes: no rashes Extrem Other: Right knee: Normal to inspection, No ecchymosis, erythema, or joint effusion. Tenderness to palpation over the lateral joint line. Positive to Calin?s. Assessment & Plan Assessment & Plan (1) Tibial plateau fracture, right: Comment: Right tibial plateau ORIF 11/05/22 NE Code(s): S82.141A - Displaced bicondylar fracture of right tibia, initial encounter for closed fracture Category: Medical Qualifiers: Encounter type: initial encounter Fracture type: closed Qualified Code(s): S82.141A - Displaced bicondylar fracture of right tibia, initial encounter for closed fracture Plan Mr. Lui is a 33-year-old male who presents in the office today status post 1.1 years status post right tibial plateau open reduction and internal fixation, which was performed on 11/06/[address] Penny. I last saw the patient in the office on 04/01/23 when the patient completed all the physical therapy and was recommended to return to normal activities as tolerated. He was successfully weaned out of the brace. For the right meniscus tear, we discussed the patient to reach out to [place] to obtain the MRI disk. While in the office today, the patient reports he has been waking up at night due to edema on the medial aspect of the right knee. He also reports having right knee pain, which has caused him to miss a few days from work. He has tried rest and icing with benefit. The patient had an MRI done at [facility] in [place], which was significant for a horizontal tear in the lateral meniscus. I will discuss the case with Dr. Penny to see if the patient is a candidate for a right knee arthroscopy. Follow-up will be pending discussion with Dr. Penny, or sooner if needed. Patient Instructions: Scribed by Lisa Banks director medical surgical, for Jessica Rich PA-C on 12/23/23 at 10:20 am EST. Coding Level of Care Code Est Pt Level 4 (77150) Diagnoses Closed fracture of right tibial plateau, initial encounter S82.141A Encounter type: initial encounter Fracture type: closed
== END 2023-12-23 10:24 | disposition home or self-care (01) ==
LOC: HO.HOS 09:37
PROVIDERS: PCP Internal Medicine; Visit Provider Physician Assistant
DX: S82.141A Displaced bicondylar fracture of right tibia, initial encounter for closed fracture (principal)
CPT/HCPCS: 99214

== ENCOUNTER → 2023-12-23 09:36 | Outpatient (BNVA) | payer OTHER, SELFPAY | PROVIDERS: PCP Internal Medicine; Visit Provider Physician Assistant | DX: S82.141D Displaced bicondylar fracture of right tibia, subsequent encounter for closed fracture with routine healing (principal); S83.281A Other tear of lateral meniscus, current injury, right knee, initial encounter | CPT/HCPCS: 99212 ==

== ENCOUNTER 2024-01-14 05:51 | Day surgery (SDC) | payer OTHER, SELFPAY ==
--- NOTE | 2024-01-13 11:47 | HO.ANESPROP2 ---
Documented by User: So Rizo NP 01/13/24 11:47 HPI - Anesthesia Eval Consult details Narrative: 33yo M for Right Knee Arthroscopy [facility] Active Problems Active Problems: All Active Problems Tibial plateau fracture, right (Acute) Past Medical History Medical History (Updated 01/14/24 @ 06:05 by Alem Correa RN) No pertinent past medical history Surgical History Surgical History (Updated 01/14/24 @ 06:06 by Alem Correa RN) History of arthroscopic knee surgery History of surgery on lower extremity History of Problems with Anesthesia: No Social History Social History Patient Tobacco Use Status: Former Tobacco user Use of substances other than those prescribed or required for medical reasons: Yes Substance Use Type Other:: smoked last 01/12 Are you DNR?: No Advance Directives: No Advance Directives Information Provided: Yes Recently lost weight without trying: No Current occupational status: unemployed Meds Allergies Allergy/AdvReac Type Severity Reaction Status Date / Time No Known Allergies Allergy Verified 01/14/24 06:06 Assessment and Plan Assessment Anesthesia Assessment: Chart Reviewed Final Anesthetic Review History of Problems with Anesthesia: No Documented by User: Maikel Cee MD 01/14/24 07:27 [facility] Past Medical History Medical History (Updated 01/14/24 @ 06:05 by Alem Correa RN) No pertinent past medical history Family History Family history of problems with anesthesia: No Surgical History Surgical History (Updated 01/14/24 @ 06:06 by Alem Correa RN) History of arthroscopic knee surgery History of surgery on lower extremity Social History Social History Patient Tobacco Use Status: Former Tobacco user Use of substances other than those prescribed or required for medical reasons: Yes Substance Use Type Other:: smoked last 01/12 Are you DNR?: No Advance Directives: No Advance Directives Information Provided: Yes Recently lost weight without trying: No Current occupational status: unemployed Meds Allergies Allergy/AdvReac Type Severity Reaction Status Date / Time No Known Allergies Allergy Verified 01/14/24 06:06 Exam Airway Mallampati Class: I TM Dist: >3cm Neck ROM: Full Loose/Missing/Broken Teeth: No Heart: ok Lungs: ok Assessment and Plan Assessment Anesthesia Assessment: Anesthesia Plan Discussed Final Anesthetic Review Family History of Problems with Anesthesia: No NPO: Yes ASA Class: I Final Preanesthetic Review: No Changes in Pt Med Stat, Meds/Allgs Chart Reviewed, Consent Obtained/Reviewed and Anes Risks/Benef Reviewed Patient Risk: Low Procedure Risk: Low Anesthetic Plan Anesthetic Plan: GA and Agree w/ Assess. and Plan Disposition: Standard PACU
[2024-01-14 06:07] VITALS: BMI 29.0
[2024-01-14 06:12] VITALS: BP 135/76; PULSE 85; RESP 15; TEMP 36.5; O2SAT 97
[2024-01-14] MEDS: Lactated Ringers 1,000 ML 100 ML IVCONT (06:25)
--- NOTE | 2024-01-14 07:25 | MHC.SHP ---
Pre-Procedural Eval Section A - 24 Hr Update-Section A only Date of Service: 01/14/24 The patient is an INPATIENT: No Changes since office visit: No Cold of Flu in the past 2 weeks, No New Medical Problems, No Changes in Medication and No Patient answered all questions The patient has been examined within 24 hours of the surgical procedure. The History & Physical has been completed within 30 days and I have reviewed it.: Yes Section B - Complete if H&P > 30 days Chief Complaint: Other tear of lateral meniscus, current injury, Allergies: Allergies Allergy/AdvReac Type Severity Reaction Status Date / Time No Known Allergies Allergy Verified 01/14/24 06:06 Plan I have reviewed the history and physical and performed a pertinent physical examination on my patient. No changes have occurred unless specified. Time Spent With Patient Time: Total time managing care of this patient today ____ minutes.
[2024-01-14 08:36] VITALS: BP 147/88; PULSE 76; RESP 18; TEMP 36.1; O2SAT 98
[2024-01-14 08:41] VITALS: BP 158/97; PULSE 60; RESP 18; O2SAT 98
[2024-01-14 08:46] VITALS: BP 163/94; PULSE 79; RESP 18; O2SAT 100
[2024-01-14 08:51] VITALS: BP 136/84; PULSE 58; RESP 18; O2SAT 100
[2024-01-14 09:06] VITALS: BP 141/84; PULSE 64; RESP 20; TEMP 36.5; O2SAT 100
--- NOTE | 2024-01-14 12:36 | P.BOP_ITS ---
Brief Operative Note Date of Service: 01/14/24 Pre-op diagnosis: right lateral meniscus tear Post-op diagnosis: same Procedure: Right lateral meniscectomy Implants: none Surgeon: Bharat Penny MD Anesthesia: GLMA and local Was an Plastic Panel Installer used for this Procedure?: No Estimated blood loss (mL): 20 Tourniquet time (min): 34 IV fluids (mL): 800 Pathology: none sent Condition: stable Disposition: PACU
--- NOTE | 2024-01-21 09:09 | P.OP_ITS ---
Operative Note Operative Note Date of Service: 01/14/24 Narrative: Date of Service: 01/14/24 Pre-op diagnosis: right lateral meniscus tear Post-op diagnosis: same Procedure: Right lateral meniscectomy Implants: none Surgeon: Bharat Penny MD Anesthesia: GLMA and local Was an Hospice Patient Care Secretary used for this Procedure?: No Estimated blood loss (mL): 20 Tourniquet time (min): 34 IV fluids (mL): 800 Pathology: none sent Condition: stable Disposition: PACU Procedure in detail: Patient was brought to the operating room placed supine on the arthroscopic table and prepped and draped in standard sterile fashion. A time-out was called to identify proper site proper procedure proper surgeon and IV antibiotics per weight were administered. I began by exsanguinating the limb and insufflating tourniquet to 300 mm Hg. Then made a standard anterolateral stab incision. The knee was insufflated with water and 30 degree arthroscope was placed. There was grade 1 fibrillations of the patella but overall suprapatellar pouch and the gutters were clean. I descended into the medial compartment where I made my medial portal under direct visualization. The medial compartment was pristine. I probed the meniscus and the meniscal root, both of which were stable. I examined the ACL whoich was also normal. I entered the lateral compartment. There was G1 tibial fibrillations. There was a radial tear of the lateral meniscus anterior to the poplitues. the lateral root was intact. Using a comb ination of meniscal biter and shaver I debrided jasiel anterolateral meniscus tear down to stable edges. Approximately 35% of the meniscal volume was removed. Once I was satisfied I removed all instrumentation and closed the portals with skin glue. 25 mL of 2% Marcaine with epinephrine was injected into the joint and the surrounding soft tissues. Patient was then placed in sterile dressing extubated brought recovery room stable condition. There were no known complications.
== END 2024-01-14 10:00 | disposition home or self-care (01) ==
PROVIDERS: PCP Internal Medicine; Visit Provider Orthopaedic Surgery
PROC: (CPT 29870; principal; 2024-01-14 07:30)
DX: S83.281A Other tear of lateral meniscus, current injury, right knee, initial encounter (principal); X58.XXXA Exposure to other specified factors, initial encounter; Y93.9 Activity, unspecified; Y92.9 Unspecified place or not applicable; Y99.9 Unspecified external cause status; M25.561 Pain in right knee; M25.461 Effusion, right knee; Z87.81 Personal history of (healed) traumatic fracture; Z98.890 Other specified postprocedural states; Z87.891 Personal history of nicotine dependence; Z56.0 Unemployment, unspecified
CPT/HCPCS: 29881; J0131; J0171; J0690; J2003; J2704; J2795; J3010

== ENCOUNTER → 2024-01-14 05:51 | Outpatient (BNV) | payer OTHER, SELFPAY | PROVIDERS: PCP Internal Medicine; Visit Provider Orthopaedic Surgery | DX: S83.281A Other tear of lateral meniscus, current injury, right knee, initial encounter (principal) | CPT/HCPCS: 29881 ==

== ENCOUNTER 2024-01-20 13:45 | Outpatient (AMB) | payer OTHER, SELFPAY ==
--- NOTE | 2024-01-20 13:50 | A.OFFVIS_ITS ---
Intake Visit Reasons: PO rt lateral meniscectomy 01/14/24 NE Intake Note: Farhan is a 33 year old male who presents today for a post op appointment s/p right lateral meniscectomy 01/14/24 NE. Patient reports he is doing well. He states that his pain is minimal, he hardly used his pain medication. Allergies No Known Allergies Allergy (Verified 01/20/24 13:54) HPI HPI PO rt lateral meniscectomy 01/14/24 NE: Details: 33-year-old male who presents in the office today 6 days status post right lateral meniscectomy which was performed on 01/14/[address] Penny. While in the office today, the patient reports he is doing well post- operatively. He mentions experiencing minimal pain in the right knee. He hardly takes his pain medication. [facility] Medical History (Updated 01/20/24 @ 14:03 by Jessica Rich PA-C) No pertinent past medical history Surgical History (Updated 01/14/24 @ 06:06 by Alem Correa RN) History of arthroscopic knee surgery History of surgery on lower extremity Social History Patient Tobacco Use Status: Former Tobacco user Current occupational status: unemployed Review of Systems Const All systems reviewed & are unremarkable except as noted in HPI and below Physical Exam Const General: cooperative, healthy appearing and no acute distress Resp Effort & Inspection: normal respiratory effort and able to speak in complete sentences Cardio Rate: regular rate Peripheral pulses: Peripheral pulses 2+ throughout GI Palpation (GI): Soft to palpation Skin Lesions: no lesions Rashes: no rashes Extrem Other: Right knee: Incision sites are clean, dry and intact. No surrounding erythema or drainage. No signs of infection. Range of motion is roughly 50 to 90 degrees. NVI. Assessment & Plan Assessment & Plan (1) Tear of lateral meniscus of right knee: Code(s): S83.281A - Other tear of lateral meniscus, current injury, right knee, initial encounter Category: Medical (2) Tibial plateau fracture, right: Comment: Right tibial plateau ORIF 11/05/22 NE Code(s): S82.141A - Displaced bicondylar fracture of right tibia, initial encounter for closed fracture Category: Medical Qualifiers: Encounter type: initial encounter Fracture type: closed Qualified Code(s): S82.141A - Displaced bicondylar fracture of right tibia, initial encounter for closed fracture Plan Mr. Lui is a 33-year-old male who presents in the office today 6 days status post right lateral meniscectomy which was performed on 01/14/[address] Penny. While in the office today, the patient reports he is doing well post- operatively. He mentions experiencing minimal pain in the right knee. He hardly takes his pain medication. The patient was referred to physical therapy to work on range of motion and strengthening. Follow-up will be in 4 weeks, or sooner if needed. Orders: Orders PT Evaluation and Treatment 01/20/24 S83.281A - Other tear of lateral meniscus, current injury, right knee, initial encounter Patient Instructions: Scribed by Lisa Banks, medical/surgery registered nurse, for Jessica Rich PA-C on 01/20/24 at 2:30 pm EST. Coding Level of Care Code Global (54761) Diagnoses Tear of lateral meniscus of right knee S83.281A Closed fracture of right tibial plateau, initial encounter S82.141A Encounter type: initial encounter Fracture type: closed
== END 2024-01-20 14:05 | disposition home or self-care (01) ==
PROVIDERS: PCP Internal Medicine; Visit Provider Physician Assistant
DX: S83.281A Other tear of lateral meniscus, current injury, right knee, initial encounter (principal); S82.141A Displaced bicondylar fracture of right tibia, initial encounter for closed fracture
CPT/HCPCS: 99024

== ENCOUNTER → 2024-01-20 13:45 | Outpatient (BNVA) | payer OTHER, SELFPAY | PROVIDERS: PCP Internal Medicine; Visit Provider Physician Assistant | DX: S83.281D Other tear of lateral meniscus, current injury, right knee, subsequent encounter (principal); S82.141D Displaced bicondylar fracture of right tibia, subsequent encounter for closed fracture with routine healing | CPT/HCPCS: 99212 ==

== ENCOUNTER 2025-01-26 10:54 | Outpatient (AMB) | payer MEDICAID, SELFPAY ==
[2025-01-26 10:57] VITALS: BP 144/86; PULSE 108; TEMP 37.1; O2SAT 97; BMI 27.5
--- NOTE | 2025-01-26 10:57 | AM.OFFWIN_ITS ---
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 History of Present Illness: The patient reports that his bowel movements are usually regular. This morning, upon wiping, he noticed material that appeared ?like a giant long mucus? with a dark, vein-like structure inside and additional mucus ?bubble/booger-like? material in the toilet. He endorses mild abdominal discomfort but states his pain tolerance is high. He feels he may need to have multiple bowel movements today and describes an unpredictable ?stomach flip? sensation. He denies visible blood in the stool. No similar gastrointestinal symptoms in household contacts. He also endorses some urinary symptoms that he attributes to ?high pressure.? He states difficulty obtaining timely primary care appointments. The patient presents with acute abnormal stool appearance and mild abdominal discomfort. Differential includes infectious (parasitic) versus inflammatory/irritable bowel etiology. Problem #1: Abnormal stool / rule out parasitic infection Assessment: Single episode of mucus-like, worm-appearing stool with mild abdominal discomfort; no blood, abdomen non-tender. Need to exclude parasitic infection. Plan: * Collect stool specimens today; patient provided kit and instructions. * Await stool study results (anticipated 1?2 days). Patient will be contacted with positive findings. * Return to UC or ED sooner if new symptoms such as blood in stool or worsening pain occur. Problem #2: Urinary symptoms, UA negative Assessment: Patient notes urinary symptoms attributed to ?high pressure?; UA today without evidence of infection. Plan: * Reassured patient regarding negative UA. * Advise follow-up with PCP for any persistent or worsening urinary issues when appointment becomes available. * Patient expressed difficulty obtaining timely primary care appointments; encouraged to seek care in ED if unable to access PCP and symptoms worsen. [facility] Medical History No pertinent past medical history Surgical History History of arthroscopic knee surgery History of surgery on lower extremity Social History Patient Tobacco Use Status: Former Tobacco user Current occupational status: unemployed Review of Systems Const All systems reviewed & are unremarkable except as noted in HPI and below Physical Exam Exam Exam: Appearance: Alert.? Oriented X3.? No acute distress.? Head: Normocephalic, atraumatic, no step-offs or deformities Eyes: Pupils equal, round and reactive to light.? Neck: Normal inspection.? Neck supple.? CVS: Normal heart rate and rhythm.? Pulses normal.? Respiratory: No respiratory distress.? Breath sounds normal.? Abdomen: Soft and nontender.? Skin: Skin warm and dry.? Normal skin color.? Normal skin turgor.? Extremities: No lower extremity edema.? No calf ttp. 5/5 strength to bilateral upper and lower extremities Back: No midline tenderness, no C-spine tenderness, full range of motion, no CVA tenderness bilaterally Neuro: Oriented X 3.? No motor deficit.? No sensory deficit. CN 2-12 intact Vital Signs: Last Vital Signs Temp 98.8 F 01/26/25 10:57 Pulse 108 H 01/26/25 10:57 BP 144/86 H 01/26/25 10:57 Pulse Ox 97 01/26/25 10:57 Oxygen Delivery Method Room Air 01/26/25 10:57 BMI result Body Mass Index 27.5 vss Results AMB Urinalysis, Automated UA Leukoctes 0 Kayla/uL Last Edit by Zofia Moser CMA on 01/26/25 11:12 UA Nitrite Negative Last Edit by Zofia Moser CMA on 01/26/25 11:12 UA Urobilinogen 0.2 mg/dL Last Edit by Zofia Moser CMA on 01/26/25 11:1 2 UA Protein 30 mg/dL Last Edit by Zofia Moser CMA on 01/26/25 11:12 1+ Zofia Moser 01/26/25 11:12 UA pH 6.0 Last Edit by Zofia Moser CMA on 01/26/25 11:12 UA Blood 0 Roland/uL Last Edit by Zofia Moser CMA on 01/26/25 11:12 UA Specific [place] 1.030 Last Edit by Zofia Moser CMA on 01/26/25 11: 12 UA Ketone Negative Last Edit by Zofia Moser CMA on 01/26/25 11:12 UA Bilirubin 0 mg/dL Last Edit by Zofia Moser CMA on 01/26/25 11:12 UA Glucose 0 mg/dL Last Edit by Zofia Moser CMA on 01/26/25 11:12 Results Reviewed Results Reviewed: Laboratory Last Values Urine pH (Auto) 6.0 01/26/25 11:10 Specific [place] (Auto) 1.030 01/26/25 11:10 Urine Protein (Auto) 30 mg/dL H* 01/26/25 11:10 Glucose (UA)(Auto) 0 mg/dL 01/26/25 11:10 Urine Ketones (Auto) Negative 01/26/25 11:10 Urine Blood (Auto) 0 Roland/uL 01/26/25 11:10 Urine Nitrite (Auto) Negative 01/26/25 11:10 Urine Bilirubin (Auto) 0 mg/dL 01/26/25 11:10 Urine Urobilinogen (Auto) 0.2 mg/dL 01/26/25 11:10 Leukocyte Esterase (Auto) 0 Kayla/uL 01/26/25 11:10 Assessment & Plan Assessment & Plan (1) Abnormal stools: Code(s): R19.5 - Other fecal abnormalities Plan Take your medications as prescribed. If you were prescribed antibiotics today, it is important that you take your medication to their entirety, do not skip any doses, do not finish them early. Follow-up with your primary care provider this week. Return to the emergency department with new or worsening symptoms. In case of emergency call 911 Orders: Orders AMB Urinalysis Automated Today Z13.9 - Encounter for screening, unspecified Ova and Parasite Today R19.5 - Other fecal abnormalities GI Panel Today R19.5 - Other fecal abnormalities Coding Level of Care Code New Pt Level 3 (33546) Diagnoses Abnormal stools R19.5
--- OUTSIDE RECORDS SUMMARY | 2025-01-26 12:46 | XMS_ITS | Clinical Summary ---
Author Organization [employer] [facility] ity Address [address] [place] [address] Care Team Providers Care General Contractor Name Role Phone Melani Mi MD Primary Care Pr ovider Allergies No known active allergies Active Problems Problem Noted Date Diagnosed Date Tear of lateral meniscus of right knee, current 09/25/2023 Immunizations Immunization Administration Dates Next Due DTP 08/06/1993,,06/28/1989,1988,1988 [id number] (Pentacel) 2mo to less than 5yo 03/24/1990 Hepatitis B Pediatric (Enger ix B; Recombivax HB) to less than 20 yo 05/03/1999,11/30/1998,08/22/1998 Influenza trivalent, 0.5mL, preservative free (Fluarix; FluLaval; Fluzone) ages 6mo and older (Afluria) 3 years and older 12/26/2005,12/14/2003,12/23/2001,2000 MMR, measles mumps and rubel la Live (Priorix; M-M-R II) 12mo and older 03/24/1997,03/24/1990 OPV 08/06/1993,,02/20/1989,1988 PPD Test 08/22/1998,05/26/1991,09/24/1989 Td Tetanus diptheria (Tdvax) 7yo and older 10/09/2000 Tdap Tetanus diptheria acell ular pertussis (Boostrix; Adacel) 7yo and older 07/05/2013 Surgical History Surgery Date Site/Laterality Comments KNEE SURGERY 2006 Bilateral PROCEDURE: HISTORICAL KNEE SURGERY; COMMENT: Arthroscopies: Left Knee Meniscectomy, Right Knee Diagnostic with no treatment; Dr. Celaya Family History Medical History Relation Name Comments Diabetes Father Heart attack Father Hypertension Father Asthma Mother Diabetes Mother Hypertension Mother Breast cancer Mother's side Relation Name Status Comments Father Mother Mother's side Social History Tobacco Use Types Packs/Day Years Used Date Smoking Tobacco: Every Day Cigarettes Smokeless Tobacco: Never Alcohol Use Standard Drinks/Week Comments Yes 0 (1 standard drink = 0.6 oz pur e alcohol) Sex and Gender Information Value Date Recorded Sex Assigned at Not on file Legal Sex Male 2:17 AM EST Gender Identity Not on file Sexual Orientation Not on file Obstetrics History Last Filed Vital Signs Vital Sign Reading Time Taken Comments Blood Pressure 140/80 09/25/2023 12:48 PM EDT Pulse 92 09/25/2023 12:48 PM EDT Temperature - - Respiratory Rate - - Oxygen Saturation - - Inhaled Oxygen Concentration - - Weight 87.5 kg (193 lb) 11/07/2023 10:40 AM EDT Height 177.8 cm (5' 10 ) 11/07/2023 10:40 AM EDT Body Mass Index 27.69 11/07/2023 10:40 AM EDT Plan of Treatment Health Maintenance Due Date Last Done Comments Pneumococcal Vaccine: Pediatrics (0 to 5 Years) and At-Risk Patients (6 to 49 Years) (1 of 2 - PCV) 10/01/2007 HPV Vaccines (1 - 3-dose SCDM series) 10/01/2015 Cholesterol Screening (Lipid Panel) 01/27/2022 HIV Screening 01/27/2022 Social Influencers of Health Screening 01/27/2022 DTaP,Tdap,and Td Vaccines (8 - Td or Tdap) 07/06/2023 07/05/2013, 10/09/2000, 08/06/1993, Additional history exists Depression Screening 02/25/2024 COVID-19 Vaccine ( - 2024- season) 2024 Influenza Vaccine (#1) 2024 6, 12/14/2003, 12/23/2001, Additional history exists RSV Immunization Adult Patients (1 - 1-dose 75+ series) 10/01/2063 HIB Vaccines Completed 03/24/1990 IPV Vaccines Completed 08/06/1993, 04/0 02/1990, 03/24/1990, Additional history exists MMR Vaccines Completed 03/24/1997, 03/24/1990 Hepatitis B Vaccines Completed 05/03/1999, 11/30/1998, 08/22/1998 Hepatitis C Screening Completed 03/11/2014 Hepatitis A Vaccines Aged Out No long er eligible based on patient's age to complete this topic Meningococcal ACWY Vaccine Aged Out N o longer eligible based on patient's age to complete this topic Meningococcal B Vaccine Aged Out No l onger eligible based on patient's age to complete this topic RSV Immunization Patients Under 20 months Aged Out No longer eligible based on patient's age to complete this topic Varicella Vaccines Aged Out No longer eligible based on patient's age to complete this topic Procedures Procedure Name Priority Date/Time Associated Diagnosis Comments HEPATITIS C SCREENING Routine 03/11/2014 from Last 3 Months or Most Recently Relevant to Health Maintenance Results * Hepatitis C Screening (03/11/2014) Hepatitis C Screening abstracted us Historical Provider HEALTH MAINTENANCE Final Result from Last 3 Months or Most Recently Relevant to Health Maintenance Care Teams General Contractor Relationship Specialty Start Date End Date Melani Mi MD PCP - General 10/14/22
== END 2025-01-26 11:25 | disposition home or self-care (01) ==
PROVIDERS: PCP Internal Medicine; Visit Provider Physician Assistant
DX: Z13.9 Encounter for screening, unspecified (principal); R19.5 Other fecal abnormalities

== ENCOUNTER → 2025-01-26 10:54 | Outpatient (BNVA) | payer MEDICAID, SELFPAY | PROVIDERS: PCP Internal Medicine; Visit Provider Physician Assistant | DX: R19.5 Other fecal abnormalities (principal) | CPT/HCPCS: 81003; 99202 ==

== ENCOUNTER 2025-01-27 10:33 | Outpatient (REF) | payer MEDICAID, SELFPAY ==
[2025-01-28 12:34] LABS: E. coli EAEC Not Detected (Not Detect.); E. coli EPEC Not Detected (Not Detect.); E. coli ETEC Not Detected (Not Detect.); E. coli STEC Not Detected (Not Detect.); Shigella sp./EIEC Not Detected (Not Detect.)
== END 2025-01-27 10:34 | disposition home or self-care (01) ==
LOC: HO.HMGCLNP 10:33
PROVIDERS: PCP Internal Medicine; Visit Provider Physician Assistant
DX: R19.5 Other fecal abnormalities (principal)
CPT/HCPCS: 87177; 87209; 87507